=== PATIENT | male | born 1940 | race Caucasian/White ===

== ENCOUNTER 2022-02-03 15:21 | Emergency (ER) | payer MEDICARE ==
[~2022-02-03] VITALS: Ht 177.8 cm; Wt 77.1 kg
[2022-02-03 15:22] VITALS: BP_SYST 133
--- NOTE | 2022-02-03 15:25 | NUR ---
Placed in room 4 . Placed on wax coating machine tender, blood pressure machine and pulse oximeter. To gown for exam. Side rails up. Report given to SANTANA ONEILL.
--- NOTE | 2022-02-03 15:27 | NUR ---
Patient was brought from home by BLS because his is concerned he may have aspirated food or liquid two days ago. Pt was examined by home health nurse and bilat chest congestion was identified. Pt began antibiotics yesterday, but started to refuse to eat, drink or take medications. Pt has hx of seizures and CVA. Pt had seizure last night approx 1930 lasting one minute. believes this is because he missed two doses of anticonvulsant medications. Pt's current deficits are reflective of baseline prior to arrival to ED. Pt is mostly nonresponsive but does follow some commands. Care to be provided as ordered.
--- NOTE | 2022-02-03 15:30 | NUR ---
ER DR. BETANCOURT EXAMINING PT
[2022-02-03] MEDS ORDERED: NACL 0.9% 1,000 ML IV ONE (15:45)
[2022-02-03 16:41] LABS: BASOPHILS % (AUTO) 0.2 % (0.0-2.0); HEMATOCRIT 43.7 % (36-54); HEMOGLOBIN 14.8 g/dL (14.0-18.0); LYMPHOCYTES # (AUTO) 1.5 K/uL (1.0-5.5); LYMPHOCYTES % (AUTO) 11.1 % (20.5-51.5); MEAN CORPUSCULAR HEMOGLOBIN 31 pg (27-31); MEAN CORPUSCULAR HGB CONC 34 % (32-36); MEAN CORPUSCULAR VOLUME 91 fL (79.0-98.0); MONOCYTES # (AUTO) 1.5 K/uL (0.0-1.0); MONOCYTES % (AUTO) 11.3 % (1.7-9.3); NEUTROPHILS # (AUTO) 10.2 K/uL (1.8-7.7); NEUTROPHILS % (AUTO) 77.4 % (40.0-70.0); PLATELET COUNT (AUTO) 169 K/uL (130-430); RED BLOOD CELL COUNT(AUTO) 4.81 MIL/uL (4.2-6.2); RED CELL DISTRIBUTION WIDTH 13.3 % (9.0-15.0); WHITE BLOOD COUNT (AUTO) 13.1 K/uL (4.8-10.8)
[2022-02-03 16:50] LABS: ANION GAP 3 (5-15); CALCIUM 9.1 mg/dL (8.4-11.0); CHLORIDE 99 mmol/L (98-107); CREATININE 0.96 mg/dL (0.55-1.30); GLUCOSE 160 mg/dL (70-99); POTASSIUM 3.5 mmol/L (3.5-5.1); UREA NITROGEN, BLOOD 7 mg/dL (8-21)
[2022-02-03 16:52] LABS: PROTHROMBIN TIME 10.9 SECS (9.5-12.5)
[2022-02-03 16:57] LABS: ALANINE AMINOTRANSFERASE 82 U/L (12-78); ASPARTATE AMINOTRANSFERASE 58 U/L (10-37); TOTAL BILIRUBIN 0.7 mg/dL (0.0-1.0)
--- NOTE | 2022-02-03 16:58 | NUR ---
COVID/FLU SWAB OBTAINED
[2022-02-03] MEDS ORDERED: AMPICILLIN SODIUM/SULBACTAM NA 3 GM in NS 100 ML IV ONE (18:45)
[2022-02-03] MEDS ORDERED: metroNIDAZOLE 500 mg/NS 100 ML IV ONE (18:45)
--- NOTE | 2022-02-03 19:20 | NUR ---
RECD REPORT FROM [facility] FOR CONTINUITY OF CARE, VSS AFEBRILE. NONVERBAL, INITIAL ASSESSMENT DONE, AT BEDSIDE.CONTINUE CARE
--- NOTE | 2022-02-03 20:09 | NUR ---
DUE IV ANTIBIOTIC GIVEN SEE EMAR
[2022-02-03] MEDS ORDERED: AMPICILLIN SODIUM/SULBACTAM NA 3 GM VIAL ONE (20:12)
--- NOTE | 2022-02-03 21:00 | NUR ---
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 HE WILL CALL BACK TO FOLLOW UP.
[2022-02-03 21:59] LABS: BILIRUBIN,URINE NEGATIVE (NEGATIVE); BLOOD, URINE 1+ (NEGATIVE); CLARITY/URINE CLEAR (CLEAR); COLOR,URINE YELLOW (YELLOW); GLUCOSE,URINE NEGATIVE (NEGATIVE); KETONES,URINE NEGATIVE (NEGATIVE); LEUKOCYTE ESTERASE ,URINE NEGATIVE (NEGATIVE); NITRITE, URINE NEGATIVE (NEGATIVE); PROTEIN URINE NEGATIVE (NEGATIVE); UROBILINOGEN,URINE 0.2 (0.2-1.0)
[2022-02-03 22:16] LABS: BACTERIA,URINE RARE /HPF (None Seen); WBC,URINE 0-3 /HPF (0-3)
--- NOTE | 2022-02-03 23:00 | NUR ---
[facility] FOR ADMIT
--- NOTE | 2022-02-03 23:30 | NUR ---
2330 [facility] HERE TO TAKE PAT TO [facility] PT IS GOING TO RM 4058 [facility] FLOOR, REPORT TO FRIDA DILLON/KRYSTLE BUT GOING TO BE TAKEN CARE BY BRIA FLORES RN.
--- NOTE | 2022-02-03 23:58 | NUR ---
Patient to be transferred to [facility]. Is being transferred due to higher level of care. Receiving facility has accepting physician DR NG and available space. ER physician has signed transfer form. Patient or responsible republican has agreed to transfer and signed form. Patient belongings inventoried and GIVEN TO ROMAN with patient. Copy of nursing notes, lab reports, EKG, Physicians Orders and X-rays to be sent with patient. Report called to FRIDA DILLON [facility] GOING TO RM 4058 at receiving facility. Receiving physician is DR BERENICE Leonard. ETA is [phone] .
[2022-02-04 00:01] VITALS: BP_SYST 129
== END 2022-02-03 23:50 | disposition short-term general hospital (02) ==
LOC: SED 15:21
DX: J18.9 Pneumonia, unspecified organism (principal); R09.02 Hypoxemia; R41.82 Altered mental status, unspecified; I10 Essential (primary) hypertension; Z79.899 Other long term (current) drug therapy; Z20.822 Contact with and (suspected) exposure to COVID-19
CPT/HCPCS: 99285; 96365; 71250; 71045; 96361; 87426; 80053; 81000; 82140; 80185; 82962; 85025; 85610; 85730; 87040; 87086; 84484; 36415; 93005; 76376; 36600; 82803; 96368; 83605; 87804 ×2; J0295; J3490; J7030